=== PATIENT | female | born 1945 | race Caucasian/White ===

== ENCOUNTER 2017-02-03 10:25 | Outpatient (CLI) | payer MEDICARE ==
--- NOTE | 2017-02-06 18:19 | MMO ---
BILATERAL SCREENING MAMMOGRAM: DATE: 02/06/2017 COMPARISON: Reference made to prior mammograms dating back to October 2012. The exam is interpreted with the assistance of computer-aided detection. FINDINGS: There are scattered heterogeneously dense breast parenchyma bilaterally limiting sensitivity of mamm ography. Scattered calcifications are present within each breast. There is an asymmetric density w ithin the middle depth inner right breast. IMPRESSION: BIRADS 0 - Incomplete. Additional imaging evaluation recommended. Recommend diagnostic right mammogram and, as necessary, ultrasound, to further evaluate asymmetric d ensity of the middle depth inner right breast on CC view. POS: DANNY
== END 2017-02-03 10:26 | disposition home or self-care (01) ==
LOC: MAMMO 10:25
PROVIDERS: ATTEND Family Medicine
DX: Z12.31 Encounter for screening mammogram for malignant neoplasm of breast (principal)
CPT/HCPCS: 77067; G0202

== ENCOUNTER 2017-02-14 13:39 | Outpatient (CLI) | payer MEDICARE ==
--- NOTE | 2017-02-14 16:26 | MMO ---
RIGHT BREAST DIAGNOSTIC MAMMOGRAM: Date: 02/14/17 INDICATION: Follow-up asymmetric within the middle depth inner right breast. FINDINGS: The three images from a right breast diagnostic evaluation demonstrates that the asymmetry within th e inner aspect of the right breast on the CC projection only on the comparison mammogram dated 02/03 did not persist. There are scattered benign-appearing calcifications within the right breast. IMPRESSION: BIRADS 2: Benign Finding(s) Recommend routine annual mammographic screening. The asymmetry within the inner aspect of the right breast middle depth did not persist with addition al views and likely reflect superimposed breast tissue. POS: DANNY
== END 2017-02-14 13:40 | disposition home or self-care (01) ==
LOC: MAMMO 13:39
PROVIDERS: ATTEND Family Medicine
DX: R92.2 Inconclusive mammogram (principal)
CPT/HCPCS: G0206-RT

== ENCOUNTER 2022-05-11 08:51 | Outpatient (CLI) | payer MEDICARE | END 2022-05-11 08:52 | disposition home or self-care (01) | LOC: BICMAMMO 08:51 | PROVIDERS: ATTEND Family Medicine | DX: Z13.820 Encounter for screening for osteoporosis (principal); E55.9 Vitamin D deficiency, unspecified; Z91.89 Other specified personal risk factors, not elsewhere classified; Z78.0 Asymptomatic menopausal state | CPT/HCPCS: 77080 ==

== ENCOUNTER 2023-06-21 12:46 | Outpatient (CLI) | payer MEDICARE | END 2023-06-21 12:47 | disposition home or self-care (01) | LOC: BICMAMMO 12:46 | PROVIDERS: ATTEND Family Medicine | DX: Z12.31 Encounter for screening mammogram for malignant neoplasm of breast (principal); Z91.89 Other specified personal risk factors, not elsewhere classified; Z80.3 Family history of malignant neoplasm of breast | CPT/HCPCS: 77063; 77067 ==